=== PATIENT | male | born 1975 | race Two or more races ===

== ENCOUNTER 2020-11-22 16:36 | Emergency (ER) | payer SELFPAY ==
[~2020-11-22] VITALS: Ht 175.3 cm; Wt 90.7 kg
[2020-11-22 19:17] VITALS: BP 122/68
[2020-11-22] MEDS ORDERED: AMOXICILLIN/CLAVUL 875 MG TAB PO ONE (21:15)
[2020-11-22] MEDS ORDERED: ACETAMINOPHEN 325 MG TAB PO ONE (21:15)
[2020-11-22] MEDS ORDERED: cefTRIAXone SOD 1,000 MG VL IM ONE (21:15)
== END 2020-11-22 23:16 | disposition left against medical advice (07) ==
LOC: ER 16:36
DX: J34.0 Abscess, furuncle and carbuncle of nose (principal); F17.210 Nicotine dependence, cigarettes, uncomplicated; F12.10 Cannabis abuse, uncomplicated
CPT/HCPCS: 70450; 70486